=== PATIENT | male | born 1985 | race Caucasian/White ===

== ENCOUNTER 2019-05-08 11:34 | Inpatient (IN) | payer BC ==
[~2019-05-08] VITALS: Ht 177.8 cm; Wt 78.5 kg
[2019-05-08 11:45] VITALS: BP 138/80
[2019-05-08 12:47] LABS: ABSOLUTE EOSINOPHILS 0.1 thou/uL (0.0-0.7); ABSOLUTE LYMPHOCYTES 1.1 thou/uL (0.8-5.3); ABSOLUTE MONOCYTES 0.4 thou/uL (0.0-1.2); ABSOLUTE NEUTROPHILS 7.1 thou/uL (1.6-8.1); BASOPHILS 0.3 %; EOSINOPHILS 0.6 %; HEMATOCRIT 44.4 % (42.0-52.0); HEMOGLOBIN 15.6 gm/dL (14.0-18.0); LYMPHOCYTES 13.1 %; MCH 30.3 pg (26.0-34.0); MCHC 35.1 g/dL (28.0-37.0); MCV 86.5 fL (80.0-100.0); MONOCYTES 4.2 %; MPV 8.6 fl. (7.2-11.1); NUCLEATED RBCS 0 /100WBC; PLATELET COUNT* 219 thou/uL (150-400); POLYS 81.8 %; RBC 5.13 mil/uL (4.50-6.00); RDW-CV 12.4 % (10.5-14.5); WBC 8.7 thou/uL (4.0-11.0)
[2019-05-08 12:58] LABS: CALCIUM 8.8 mg/dL (8.5-10.1); CREATININE 1.5 mg/dL (0.6-1.3); POTASSIUM 3.9 mmol/L (3.5-5.1)
[2019-05-08 13:24] LABS: ALBUMIN 4.3 g/dL (3.4-5.0); TOTAL BILIRUBIN 0.7 mg/dL (<0.1-1.0); TOTAL PROTEIN 7.7 g/dL (6.4-8.2)
[2019-05-08 14:34] LABS: URINE BILIRUBIN NEGATIVE (Negative); URINE BLOOD 3+ (Negative); URINE CLARITY CLEAR; URINE COLOR YELLOW; URINE GLUCOSE-RANDOM NEGATIVE (Negative); URINE KETONES NEGATIVE (Negative); URINE LEUKOCYTES-REFLEX NEGATIVE (Negative); URINE NITRITE-REFLEX NEGATIVE (Negative); URINE PROTEIN NEGATIVE (Negative); URINE UROBILINOGEN 0.2 E.U./dl (0.2-1.0)
[2019-05-08 14:41] LABS: SQUAMOUS 0-3 Few /LPF (0-3); URINE RBC >20 Many /HPF (0-2); URINE WBC-REFLEX None Seen /HPF (0-5)
[2019-05-08 14:42] LABS: CASTS None Seen /LPF (None Seen); CRYSTALS None Seen /LPF (None Seen); MUCUS None Seen strn/LPF (None Seen)
[2019-05-08 15:20] VITALS: BP 128/84
[2019-05-08 16:00] VITALS: BP 129/89
--- NOTE | 2019-05-08 19:00 | NUR ---
PATIENT ADMITTED THIS AFTERNOON FOR RENAL STONE. CONSULT WITH UROLOGY COMPLETED. POC REVIEWED. IV FLUIDS INFUSING W/O DIFF. PATIENT EDUCATED ON URINE BEING STRAINED. HRLY ROUNDS DONE. AMB INDEP IN RM. PATIENT DENIES PAIN AT THIS TIME. ~TJRN
[2019-05-08 20:40] VITALS: BP 132/89
--- NOTE | 2019-05-09 05:53 | NUR ---
PATIENT WAS ABLE TO SLEEP THROUGH THE SHIFT. HE REQUESTED NO PAIN MEDS, REPORTED NO PAIN OR NAUSEA. HAS BEEN STRAINING ALL URINE REQUESTED AND UP AD [place] TO THE BATHROOM. UROLOGY SAW YESTERDAY AND HAS NOT DETERMINED A PLAN YET. PATIENT IS COMFORTABLE AND BEEN NPO SINCE MIDNIGHT. WILL CONTINUE TO FOLLOW PLAN OF CARE.
[2019-05-09 08:50] VITALS: BP 126/85
--- NOTE | 2019-05-09 09:43 | NUR ---
CM ASSESSMENT: VISITED WITH PT IN ROOM. PT LIVES IN [place] AND WAS IS IN [place] VISITING HIS 'S FAMILY. 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 HE PLANS ON LEAVING AND RETURNING TO [place] WITH HIS UPON DC. POSSIBLE CYSTOSCOPY TODAY.
[2019-05-09] MEDS ORDERED: FLOMAX0.4 MG PO (10:19)
[2019-05-09] MEDS ORDERED: CIPRO500 MG PO (10:19)
[2019-05-09] MEDS ORDERED: NORCO 5-325 TA1 EAC1 PO (10:19)
[2019-05-09 11:30] LABS: CALCIUM 8.6 mg/dL (8.5-10.1); CREATININE 1.1 mg/dL (0.6-1.3); POTASSIUM 3.8 mmol/L (3.5-5.1)
[2019-05-09 13:02] VITALS: BP 132/89
[2019-05-09 13:14] VITALS: BP 132/89
--- NOTE | 2019-05-09 13:55 | NUR ---
PATIENT DISCHARGED TO HOME WITH PRESENT. REVIEW OF DISCHARGE INSTRUCTIONS DONE. EDUCATION ON STRAINING URINE DONE, SUPPLIES GIVEN. COPY OF DISCHARGE INSTRUCTIONS AND ORIG SCRIPTS GIVEN TO PATIENT. PATIENT DRESSES INDEP, BELONGINGS WITH PATIENT. PATIENT DENIES PAIN, DENIES N/V. DENIES FURTHER NURSING NEEDS. ESCORTED OFF UNIT PER ALEJANDRO W/ NURSING PRESENT. ~[id number]
== END 2019-05-09 13:55 | disposition home or self-care (01) | DRG 690 ==
LOC: M.ERS 11:34 → M.ORTHSURG 14:54 → M.TBA-ER 14:54 → M.ORTHSURG 15:28
PROVIDERS: Nurse Practitioner Family; Urology; ADMIT Internal Medicine
DX: N30.01 Acute cystitis with hematuria (principal); N20.1 Calculus of ureter; N17.9 Acute kidney failure, unspecified; Z79.899 Other long term (current) drug therapy

== ENCOUNTER 2019-05-13 21:48 | Emergency (ER) | payer BC ==
[~2019-05-13] VITALS: Ht 177.8 cm; Wt 77.1 kg
[~2019-05-13 21:48] MED LIST: CIPRO500 MG PO; FLOMAX0.4 MG PO; NORCO 5-325 TA1 EAC1 PO
[2019-05-13 22:18] LABS: URINE BILIRUBIN NEGATIVE (Negative); URINE BLOOD 2+ (Negative); URINE CLARITY SL CLOUDY; URINE COLOR YELLOW; URINE GLUCOSE-RANDOM NEGATIVE (Negative); URINE KETONES NEGATIVE (Negative); URINE LEUKOCYTES-REFLEX NEGATIVE (Negative); URINE NITRITE-REFLEX NEGATIVE (Negative); URINE PROTEIN NEGATIVE (Negative); URINE UROBILINOGEN 0.2 E.U./dl (0.2-1.0)
[2019-05-13 22:25] LABS: AMORPHOUS PHOSPHATES Many /LPF (None Seen); CASTS None Seen /LPF (None Seen); MUCUS 0-3 Light strn/LPF (None Seen); SQUAMOUS 0-3 Few /LPF (0-3); TRIPLE PHOSPHATE CRYSTALS 0-3 Few /LPF (None Seen); URINE RBC 3-10 Few /HPF (0-2); URINE WBC-REFLEX 0-5 Rare /HPF (0-5)
[2019-05-13 22:34] LABS: HEMATOCRIT 41.5 % (42.0-52.0); HEMOGLOBIN 14.4 gm/dL (14.0-18.0); MCH 29.9 pg (26.0-34.0); MCHC 34.8 g/dL (28.0-37.0); MCV 85.9 fL (80.0-100.0); MPV 8.8 fl. (7.2-11.1); RBC 4.83 mil/uL (4.50-6.00); RDW-CV 12.4 % (10.5-14.5)
[2019-05-13 22:41] LABS: CALCIUM 8.3 mg/dL (8.5-10.1); CREATININE 1.3 mg/dL (0.6-1.3); POTASSIUM 3.5 mmol/L (3.5-5.1)
[2019-05-13 22:43] LABS: INFLUENZA A ANTIGEN Negative (Negative); INFLUENZA B ANTIGEN Negative (Negative)
[2019-05-13 22:46] LABS: ALBUMIN 3.9 g/dL (3.4-5.0); TOTAL BILIRUBIN 0.6 mg/dL (<0.1-1.0)
[2019-05-13 23:18] VITALS: BP 145/85
== END 2019-05-13 23:19 | disposition home or self-care (01) ==
LOC: M.ERS 21:48
PROVIDERS: Family Medicine
DX: B34.9 Viral infection, unspecified (principal)